=== PATIENT | female | born 1955 ===

== ENCOUNTER → 2021-07-08 | Outpatient (CLI) | payer BC | END | disposition home or self-care (01) | LOC: LAB 13:05 → LAB SHORT 13:05 | DX: J02.9 Acute pharyngitis, unspecified (principal) | CPT/HCPCS: 87081 ==

== ENCOUNTER → 2024-02-18 | Outpatient (CLI) | payer BC ==
[2024-02-26 11:20] LABS: HPV HIGH RISK BY TMA Not Detected; HPV SOURCE Cervical
== END ==
LOC: LAB SHORT 11:20 → LAB 11:20
PROVIDERS: Advanced Practice Midwife
DX: Z01.419 Encounter for gynecological examination (general) (routine) without abnormal findings (principal)
CPT/HCPCS: 87624; G0123